=== PATIENT | female | born 1975 | race Caucasian/White ===

== ENCOUNTER 2020-02-11 | Outpatient (CLI) | payer OTHER ==
[~2020-02-11] MED LIST: ALDACTONE25 MG PO; ASPIRIN81 MG PO; ATIVAN0.5 MG PO; BAYER CHEWABLE81 MG PO; BRILINTA90 MG PO; CYCLOBENZAPRINE10 MG PO; ELAVIL 25 MG TA25 MG PO; FENOFIBRATE145 MG PO; FLEXERIL 10 MG10 MG PO; HEARTBURN PREVE20 MG PO; IBUPROFEN800 MG PO; ISOSORBIDE MON120 MG PO; LASIX20 MG PO; LIPITOR TAB 1010 MG PO; LISINOPRIL10 MG PO; LODINE CAP 300300 MG PO; LOPRESSOR 25 MG25 MG PO; LOSARTAN POTAS100 MG PO; MACROBID 100 M100 MG PO; METOPROLOL SUCC50 MG PO; NICOTINE PATCH1 EAC1 TOP; NITROSTAT 0.40.4 MG PO; NORCO 5-325 TA1 EACH PO; PRINIVIL5 MG PO; PROTONIX40 MG PO; RANEXA500 MG PO; ROBAXIN 750 MG750 MG PO; SYNTHROID175 MCG PO; TOPIRAMATE100 MG PO; TOPROL XL25 MG PO; VENTOLIN HFA 66.7 GM INH; VITAMIN D21250 MCG PO; XANAX0.5 MG PO; ZANTAC150 MG PO; ZESTRIL10 MG PO
[2020-02-11] MEDS ORDERED: METOPROLOL SUCC25 MG PO (18:14)
--- NOTE | 2020-02-11 18:53 | NUR ---
1800 DR CORDERO NOTIFIED OF TIME TO PULL SHEATH STATED TO GO AHEAD AND PULL SHEATH IF PT BLEEDS HOLD AGGRASTAT FOR ONE HOUR THEN RESUME FOR A TOTAL OF 12 HOURS
[2020-02-12 05:17] LABS: HEMOGLOBIN 16.7 gm/dl (12.3-15.3); RED BLOOD COUNT 4.79 M/UL (4.00-5.10); WHITE BLOOD COUNT 19.2 K/UL (4.5-11.0)
[2020-02-12 06:01] LABS: BUN/CREATININE RATIO 8 (0-10)
[2020-02-12] MEDS ORDERED: XANAX0.5 MG PO (11:24)
[2020-02-12] MEDS ORDERED: VISTARIL 25 MG25 MG PO (11:24)
[2020-02-16] MEDS ORDERED: NAPROSYN500 MG PO (14:31)
[2020-02-16] MEDS ORDERED: CLEOCIN HCL300 MG PO (14:31)
[2020-08-04] MEDS ORDERED: SYNTHROID300 MCG PO (07:54)
[2020-08-04] MEDS ORDERED: CYCLOBENZAPRINE10 MG PO (07:59)
[2020-08-04] MEDS ORDERED: NITROSTAT0.4 MG SL (09:35)
[2020-08-04] MEDS ORDERED: LIPITOR40 MG PO (12:45)
== END 2020-02-12 13:30 | disposition home or self-care (01) ==
PROVIDERS: Internal Medicine Interventional Cardiology
DX: I25.118 Atherosclerotic heart disease of native coronary artery with other forms of angina pectoris (principal); I10 Essential (primary) hypertension; E78.5 Hyperlipidemia, unspecified; J45.909 Unspecified asthma, uncomplicated; F17.200 Nicotine dependence, unspecified, uncomplicated; I97.790 Other intraoperative cardiac functional disturbances during cardiac surgery; I44.30 Unspecified atrioventricular block; I95.9 Hypotension, unspecified; R00.1 Bradycardia, unspecified; F41.9 Anxiety disorder, unspecified; K21.9 Gastro-esophageal reflux disease without esophagitis; Z79.82 Long term (current) use of aspirin; Z98.61 Coronary angioplasty status; Y84.0 Cardiac catheterization as the cause of abnormal reaction of the patient, or of later complication, without mention of misadventure at the time of the procedure; Z79.899 Other long term (current) drug therapy
CPT/HCPCS: 36415; 80048; 82550; 82553; 84484; 84703; 85027; 85347; 93005; 99152; 99153; C1725; C1769; C1874; C1887; C9600; J0360; J0461; J1170; J1200; J1644; J2250; J2370; J2405; J2930; J3010; J3246; J7030; J7040; Q9967

== ENCOUNTER 2020-08-04 12:57 | Inpatient (IN) | payer OTHER ==
[~2020-08-04] VITALS: Ht 162.6 cm; Wt 109.8 kg
[~2020-08-04 12:57] MED LIST changes: -ALPRAZOLAM0.5 MG PO; -CLINDAMYCIN HC150 MG PO; -ECOTRIN81 MG PO; -EFFIENT10 MG PO; -EPIPEN 2-P0.3 MG/0.3 INJ; -FAMOTIDINE20 MG PO; -FUROSEMIDE20 MG PO; -HYDROCODONE-AC1 EACH PO; -HYDROXYZINE HCL25 MG PO; -IPRAT-ALBUT 0.5-3 ML NEB; -MEDROL DOSEPAK 24 MG PO; -NITRO-DUR1 EACH TOP; -POLYETHYLENE G500 GM PO; -PREDNISONE10 MG PO; -RANEXA1000 MG PO; -XYZAL5 MG PO
[2020-08-04 14:41] LABS: RED BLOOD COUNT 5.86 M/UL (4.00-5.10); WHITE BLOOD COUNT 15.1 K/UL (4.5-11.0)
[2020-08-04] MEDS ORDERED: ALPRAZOLAM0.5 MG PO (16:58)
[2020-08-04] MEDS ORDERED: ECOTRIN81 MG PO (17:00)
[2020-08-04] MEDS ORDERED: PREDNISONE10 MG PO (17:00)
[2020-08-04] MEDS ORDERED: FAMOTIDINE20 MG PO (17:03)
[2020-08-04] MEDS ORDERED: NITRO-DUR1 EACH TOP (17:03)
[2020-08-04] MEDS ORDERED: FUROSEMIDE20 MG PO (17:04)
[2020-08-04] MEDS ORDERED: POLYETHYLENE G500 GM PO (17:05)
[2020-08-04] MEDS ORDERED: HYDROXYZINE HCL25 MG PO (17:05)
[2020-08-04] MEDS ORDERED: XYZAL5 MG PO (17:08)
[2020-08-04] MEDS ORDERED: PROTONIX40 MG PO (17:10)
[2020-08-04] MEDS ORDERED: RANEXA1000 MG PO (17:11)
[2020-08-04] MEDS ORDERED: METOPROLOL SUCC50 MG PO (17:13)
[2020-08-04 19:26] LABS: HEMOGLOBIN 19.9 gm/dl (12.3-15.3); RED BLOOD COUNT 5.51 M/UL (4.00-5.10)
[2020-08-04 19:33] LABS: WHITE BLOOD COUNT 31.4 K/UL (4.5-11.0)
[2020-08-04] MEDS ORDERED: EFFIENT10 MG PO (19:53)
[2020-08-04 22:36] LABS: HEMOGLOBIN 19.4 gm/dl (12.3-15.3); RED BLOOD COUNT 5.47 M/UL (4.00-5.10)
[2020-08-04 22:48] LABS: WHITE BLOOD COUNT 21.3 K/UL (4.5-11.0)
[2020-08-05 03:21] LABS: HEMOGLOBIN 18.6 gm/dl (12.3-15.3); RED BLOOD COUNT 5.2 M/UL (4.00-5.10); WHITE BLOOD COUNT 20.9 K/UL (4.5-11.0)
[2020-08-05 03:45] LABS: BUN/CREATININE RATIO 15 (0-10)
[2020-08-06 04:01] LABS: RED BLOOD COUNT 4.1 M/UL (4.00-5.10); WHITE BLOOD COUNT 22.8 K/UL (4.5-11.0)
[2020-08-06 04:02] LABS: HEMOGLOBIN 14.6 gm/dl (12.3-15.3)
[2020-08-06 04:28] LABS: BUN/CREATININE RATIO 17 (0-10)
[2020-08-06] MEDS ORDERED: SYNTHROID300 MCG PO (09:17)
[2020-08-06] MEDS ORDERED: FAMOTIDINE20 MG PO (09:17)
[2020-08-06] MEDS ORDERED: IPRAT-ALBUT 0.5-3 ML NEB (09:17)
[2020-08-06] MEDS ORDERED: MEDROL DOSEPAK 24 MG PO (09:18)
[2020-08-06] MEDS ORDERED: EPIPEN 2-P0.3 MG/0.3 INJ (10:46)
[2020-08-06 16:11] LABS: HEMATOCRIT 50.9 % (34.0-46.6)
== END 2020-08-06 12:03 | disposition home or self-care (01) | DRG 208 ==
LOC: ER1 12:57 → CCU 15:00 → MED SURG 4 08-05 14:56
PROVIDERS: Internal Medicine; Internal Medicine Hematology & Oncology; Physician Assistant; ADMIT Internal Medicine
PROC: 4A023N7 Measurement of Cardiac Sampling and Pressure, Left Heart, Percutaneous Approach (ICD-10-PCS; principal; 2020-08-04)
PROC: B2111ZZ Fluoroscopy of Multiple Coronary Arteries using Low Osmolar Contrast (ICD-10-PCS; 2020-08-04)
PROC: 5A1935Z Respiratory Ventilation, Less than 24 Consecutive Hours (ICD-10-PCS; 2020-08-04)
PROC: B24BZZ4 Ultrasonography of Heart with Aorta, Transesophageal (ICD-10-PCS; 2020-08-05)
DX: J96.01 Acute respiratory failure with hypoxia (principal); I49.01 Ventricular fibrillation; I46.2 Cardiac arrest due to underlying cardiac condition; I21.4 Non-ST elevation (NSTEMI) myocardial infarction; T88.6XXA Anaphylactic reaction due to adverse effect of correct drug or medicament properly administered, initial encounter; T50.8X5A Adverse effect of diagnostic agents, initial encounter; G47.33 Obstructive sleep apnea (adult) (pediatric); F17.210 Nicotine dependence, cigarettes, uncomplicated; D75.1 Secondary polycythemia; D75.89 Other specified diseases of blood and blood-forming organs; G89.29 Other chronic pain; I10 Essential (primary) hypertension; E66.01 Morbid (severe) obesity due to excess calories; I25.5 Ischemic cardiomyopathy; I16.0 Hypertensive urgency; F32.9 Major depressive disorder, single episode, unspecified; E03.9 Hypothyroidism, unspecified; J96.02 Acute respiratory failure with hypercapnia; I25.10 Atherosclerotic heart disease of native coronary artery without angina pectoris; F41.9 Anxiety disorder, unspecified; E78.5 Hyperlipidemia, unspecified; I25.2 Old myocardial infarction; Z79.82 Long term (current) use of aspirin; Z95.5 Presence of coronary angioplasty implant and graft; Z82.49 Family history of ischemic heart disease and other diseases of the circulatory system; Z82.3 Family history of stroke; Z88.0 Allergy status to penicillin; Z88.8 Allergy status to other drugs, medicaments and biological substances; Z88.1 Allergy status to other antibiotic agents; Z91.041 Radiographic dye allergy status
CPT/HCPCS: ECHO; 31500; 36415; 36600; 70450; 71045; 71275; 80048; 80053; 81001; 82550; 82553; 82565; 82607; 82747; 82803; 83615; 83735; 83921; 84439; 84443; 84484; 84520; 85007; 85025; 85027; 85610; 85730; 87040; 87070; 87205; 92950; 93005; 93306; 93880; 94002; 94003; 94640; 94760; 99285; C1769; C1887; C1894; J0171; J0360; J0461; J0583; J1644; J1940; J2270; J2704; J2930; J7030; J7040; Q9965; Q9967; U0002

== ENCOUNTER → 2020-08-04 | Outpatient (CLI) | payer OTHER ==
[~2020-08-04] MED LIST changes: +ALPRAZOLAM0.5 MG PO; +CLEOCIN HCL300 MG PO; +CLINDAMYCIN HC150 MG PO; +ECOTRIN81 MG PO; +EFFIENT10 MG PO; +EPIPEN 2-P0.3 MG/0.3 INJ; +FAMOTIDINE20 MG PO; +FUROSEMIDE20 MG PO; +HYDROCODONE-AC1 EACH PO; +HYDROXYZINE HCL25 MG PO; +IPRAT-ALBUT 0.5-3 ML NEB; +LIPITOR40 MG PO; +MEDROL DOSEPAK 24 MG PO; +METOPROLOL SUCC25 MG PO; +NAPROSYN500 MG PO; +NITRO-DUR1 EACH TOP; +NITROSTAT0.4 MG SL; +POLYETHYLENE G500 GM PO; +PREDNISONE10 MG PO; +RANEXA1000 MG PO; +SYNTHROID300 MCG PO; +VISTARIL 25 MG25 MG PO; +XYZAL5 MG PO
== END ==
LOC: ECHO 10:29 → CT 11:30
DX: Z53.8 Procedure and treatment not carried out for other reasons (principal)
CPT/HCPCS: ECHO; 36415; 71275; 82565; 84520; 93306; J0461; J0583; J1644; Q9965; Q9967

== ENCOUNTER 2020-08-10 14:14 | Emergency (ER) | payer OTHER ==
[~2020-08-10 14:14] MED LIST changes: +ALPRAZOLAM0.5 MG PO; +ECOTRIN81 MG PO; +EFFIENT10 MG PO; +EPIPEN 2-P0.3 MG/0.3 INJ; +FAMOTIDINE20 MG PO; +FUROSEMIDE20 MG PO; +HYDROXYZINE HCL25 MG PO; +IPRAT-ALBUT 0.5-3 ML NEB; +MEDROL DOSEPAK 24 MG PO; +NITRO-DUR1 EACH TOP; +POLYETHYLENE G500 GM PO; +PREDNISONE10 MG PO; +RANEXA1000 MG PO; +XYZAL5 MG PO
[2020-08-10] MEDS ORDERED: HYDROCODONE-AC1 EACH PO (15:41)
[2020-08-10] MEDS ORDERED: CLINDAMYCIN HC150 MG PO (15:41)
== END 2020-08-10 16:09 | disposition home or self-care (01) ==
LOC: ER1 14:14
DX: K04.02 Irreversible pulpitis (principal); K02.9 Dental caries, unspecified
CPT/HCPCS: 64400; 99283

== ENCOUNTER → 2020-08-27 | Outpatient (CLI) | payer OTHER ==
[~2020-08-27] MED LIST changes: +CLINDAMYCIN HC150 MG PO; +HYDROCODONE-AC1 EACH PO
== END ==
LOC: SLEEP 14:09
DX: G47.33 Obstructive sleep apnea (adult) (pediatric) (principal); Z79.899 Other long term (current) drug therapy; Z79.82 Long term (current) use of aspirin; Z79.890 Hormone replacement therapy
CPT/HCPCS: 95810

== ENCOUNTER → 2020-09-03 | Outpatient (CLI) | payer OTHER | LOC: HEART 5 08:00 | DX: R07.9 Chest pain, unspecified (principal); R06.02 Shortness of breath; I51.9 Heart disease, unspecified; I25.10 Atherosclerotic heart disease of native coronary artery without angina pectoris; R94.39 Abnormal result of other cardiovascular function study | CPT/HCPCS: 78452; A9502; J2785 ==

== ENCOUNTER → 2021-01-26 | Outpatient (CLI) | payer OTHER ==
[2021-01-26 14:42] LABS: HEMOGLOBIN 16.8 gm/dl (12.3-15.3); RED BLOOD COUNT 4.79 M/UL (4.00-5.10); WHITE BLOOD COUNT 9.4 K/UL (4.5-11.0)
[2021-01-27 09:14] LABS: COMPLEMENT C3, SERUM 196 mg/dL (82-167); COMPLEMENT C4, SERUM 40 mg/dL (12-38)
== END ==
LOC: LAB 13:59
PROVIDERS: Allergy & Immunology Allergy
DX: J30.89 Other allergic rhinitis (principal); J45.30 Mild persistent asthma, uncomplicated; T78.2XXA Anaphylactic shock, unspecified, initial encounter
CPT/HCPCS: 36415; 83655; 85025; 86038; 86160; 86161; 86162

== ENCOUNTER 2021-03-15 16:02 | Emergency (ER) | payer OTHER ==
[2021-03-15 18:11] LABS: HEMOGLOBIN 16.5 gm/dl (12.3-15.3); RED BLOOD COUNT 4.74 M/UL (4.00-5.10); WHITE BLOOD COUNT 11.8 K/UL (4.5-11.0)
[2021-03-15 18:41] LABS: BUN/CREATININE RATIO 9 (0-10)
[2021-03-16] MEDS ORDERED: CYCLOBENZAPRINE10 MG PO (00:05)
[2021-03-16] MEDS ORDERED: OMNICEF 300 MG300 MG PO (00:05)
[2021-03-16] MEDS ORDERED: K-TAB ER20 MEQ PO (00:07)
[2021-03-16] MEDS ORDERED: LINZESS145 MCG PO (00:29)
== END 2021-03-16 00:39 | disposition home or self-care (01) ==
LOC: ER1 16:02
PROVIDERS: Physician Assistant
DX: S39.012A Strain of muscle, fascia and tendon of lower back, initial encounter (principal); N39.0 Urinary tract infection, site not specified; E87.6 Hypokalemia; I25.10 Atherosclerotic heart disease of native coronary artery without angina pectoris; I11.9 Hypertensive heart disease without heart failure; I25.2 Old myocardial infarction; F17.200 Nicotine dependence, unspecified, uncomplicated; Z88.1 Allergy status to other antibiotic agents; Z87.442 Personal history of urinary calculi; Z88.0 Allergy status to penicillin; Z88.8 Allergy status to other drugs, medicaments and biological substances; Z91.041 Radiographic dye allergy status; Z86.711 Personal history of pulmonary embolism; X58.XXXA Exposure to other specified factors, initial encounter
CPT/HCPCS: 80053; 81001; 84703; 85025; 87086; 96374; 96375; 99284; J1885; J2270; J2405

== ENCOUNTER 2021-03-21 14:10 | Emergency (ER) | payer OTHER ==
[~2021-03-21 14:10] MED LIST changes: +K-TAB ER20 MEQ PO; +LINZESS145 MCG PO; +OMNICEF 300 MG300 MG PO
[2021-03-21] MEDS ORDERED: PERCOCET 5/325 T1 EA PO (15:44)
== END 2021-03-21 16:00 | disposition home or self-care (01) ==
LOC: ER1 14:10
DX: K02.9 Dental caries, unspecified (principal); F17.210 Nicotine dependence, cigarettes, uncomplicated; I10 Essential (primary) hypertension
CPT/HCPCS: 64400; 99282

== ENCOUNTER → 2021-06-11 | Outpatient (CLI) | payer OTHER ==
[~2021-06-11] MED LIST changes: +PERCOCET 5/325 T1 EA PO
== END ==
LOC: US 13:37
DX: R10.2 Pelvic and perineal pain (principal)
CPT/HCPCS: 76830

== ENCOUNTER 2021-10-28 16:40 | Observation (INO) | payer OTHER ==
[~2021-10-28] VITALS: Ht 157.5 cm; Wt 99.8 kg
[2021-10-28 18:29] LABS: HEMOGLOBIN 15.6 gm/dl (12.3-15.3); RED BLOOD COUNT 4.65 M/UL (4.00-5.10); WHITE BLOOD COUNT 10.3 K/UL (4.5-11.0)
[2021-10-28 18:57] LABS: BUN/CREATININE RATIO 12 (0-10)
[2021-10-29 06:35] LABS: HEMOGLOBIN 15.6 gm/dl (12.3-15.3); RED BLOOD COUNT 4.64 M/UL (4.00-5.10); WHITE BLOOD COUNT 11.1 K/UL (4.5-11.0)
[2021-10-29 06:59] LABS: BUN/CREATININE RATIO 11 (0-10)
--- NOTE | 2021-10-29 07:13 | NUR ---
ANSWERED PATIENT CALL LIGHT, PATIENT STARTED YELLING THAT SHE ATE LAST NIGHT, SHE IS NOT HERE FOR CHEST PAIN, SHE IS HERE FOR BACK PAIN. SHE IS NOT NPO. I EXPLAINED TO PATIENT PROTOCOL FOR CARDIOLOGY CONSULT AND THE REASON FOR BEING NPO INCASE CARDIOLOGY WOULD LIKE TO DO A STRESS TEST. I EXPLAINED TO PATIENT IF SHE ATE THEN IT WOULD POSSIBLY PROLONG CARIDOLOGY PLANS. PATIENT HOSTILE AND ARGUING THAT SHE IS NOT HERE FOR CHEST PAIN, SHE IS HERE FOR BACK PAIN WHEN SHE WALKED THROUGH THE HOSPITAL DOORS SHE EXPLAINED THAT TO THEM AND WHEN THE DR CAME INTO HER ROOM HE ASKED IF SHE HAD BEEN HAVING CHEST PAIN AND SHE ANSWERED YES TO WHICH THATS ALL THE ER FOCUSED ON AT THAT POINT. PATIENT REMAINED HOSTILE AND YELLING. I EXPLAINED THAT I WOULD CALL THE DOCTOR AND LET HIM KNOW. SIGNWRITER VINCENT NOTIFIED.
[2021-10-29] MEDS ORDERED: LEVOTHYROXINE300 MCG PO (09:53)
[2021-10-29] MEDS ORDERED: LINZESS290 MCG PO (09:53)
[2021-10-29] MEDS ORDERED: AMLODIPINE BESYL5 MG PO (09:58)
[2021-10-29] MEDS ORDERED: FOLIC ACID1 MG PO (09:58)
[2021-10-29] MEDS ORDERED: FAMOTIDINE20 MG PO (09:58)
[2021-10-29] MEDS ORDERED: AMITRIPTYLINE H10 MG PO ×2 (09:58→10:22)
[2021-10-29] MEDS ORDERED: FLOVENT 110 MC7.9 GM INH (09:59)
[2021-10-29] MEDS ORDERED: CHLORTHALIDONE25 MG PO (09:59)
[2021-10-29] MEDS ORDERED: POTASSIUM CHLO10 ME1 PO (09:59)
[2021-10-29] MEDS ORDERED: MONTELUKAST SOD10 MG PO (10:00)
[2021-10-29] MEDS ORDERED: NIFEDIPINE20 MG PO ×2 (10:04→11:09)
[2021-10-29] MEDS ORDERED: HYDROCODON-ACE1 EAC4 PO (10:06)
[2021-10-29] MEDS ORDERED: EPIPEN 2-P0.3 MG/0.3 INJ (10:22)
== END 2021-10-29 11:58 | disposition home or self-care (01) ==
LOC: ER1 16:40 → MED SURG 4 22:26 → CDU 22:26 → MED SURG 4 10-29 01:45
PROVIDERS: ADMIT Internal Medicine
DX: R07.89 Other chest pain (principal); M51.26 Other intervertebral disc displacement, lumbar region; I25.10 Atherosclerotic heart disease of native coronary artery without angina pectoris; I11.0 Hypertensive heart disease with heart failure; I50.9 Heart failure, unspecified; E78.5 Hyperlipidemia, unspecified; G47.33 Obstructive sleep apnea (adult) (pediatric); D45 Polycythemia vera; E03.9 Hypothyroidism, unspecified; F41.8 Other specified anxiety disorders; E66.9 Obesity, unspecified; Z90.49 Acquired absence of other specified parts of digestive tract; Z95.5 Presence of coronary angioplasty implant and graft; Z86.74 Personal history of sudden cardiac arrest; Z91.041 Radiographic dye allergy status; Z88.0 Allergy status to penicillin; Z88.1 Allergy status to other antibiotic agents; Z72.0 Tobacco use; Z98.890 Other specified postprocedural states; Z79.82 Long term (current) use of aspirin
CPT/HCPCS: ECHO; 36415; 71045; 80048; 80053; 80061; 81001; 82550; 82553; 83036; 83735; 84439; 84443; 84484; 85025; 93005; 93306; 96374; 96375; 96376; 99285; C9113; G0378; J2270; J2405